=== PATIENT | female | born 1980 | race Caucasian/White ===

== ENCOUNTER 2025-06-24 11:04 | Emergency (ER) | payer BC ==
[~2025-06-24] VITALS: Ht 167.6 cm; Wt 111.4 kg
[2025-06-24 11:23] VITALS: TEMP 97.6
[2025-06-24 12:00] VITALS: BP 142/91; PULSE 67; RESP 18; O2SAT 100
[2025-06-24] MEDS: ketorolac trometh 15mg/ml vial 15 MG/ML ML IM ONE (13:24)
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
[2025-06-24] MEDS ORDERED: IBUP-1986 PO (14:33)
[2025-06-24] MEDS ORDERED: CYCL-1 PO (14:33)
== END 2025-06-24 14:44 | disposition home or self-care (01) ==
LOC: ER 11:05
DX: M54.41 Lumbago with sciatica, right side (principal)
CPT/HCPCS: 72100; 96372; 99285; J1885